=== PATIENT | female | born 1935 | race Caucasian/White ===

== ENCOUNTER → 2016-04-28 | Outpatient (CLI) | payer OTHER, BC ==
[~2016-04-28] MED LIST: ASPCH81X PO; CALCTAB5 PO; CHOL100010 PO; COLE625T PO; DILT-113 PO; DIPH25CA65 PO; GABA1CAP PO; MULT-768 PO; NEPA0.6D OPR; PRED1SUS3 OPR; SIMV10TA2 PO
[2016-04-28 13:50] LABS: BLOOD UREA NITROGEN 16 mg/dl (7-18); BUN/CREATININE RATIO 18.8 (10-20); CALCIUM 9.4 mg/dl (8.5-10.1); CARBON DIOXIDE 23 mmol/L (21-32); CHLORIDE 107 mmol/L (98-107); CHOLESTEROL 195 mg/dl (0-200); CREATININE 0.84 mg/dl (0.60-1.20); GLUCOSE 96 mg/dl (70-99); SODIUM 141 mmol/L (136-145); TRIGLYCERIDES 189 mg/dl (0-150); VERY LOW DENSITY LIPOPROT CALC 38 mg/dl
[2016-04-28 13:53] LABS: CHOLESTEROL/HDL RATIO 3.4; HDL CHOLESTEROL 58 mg/dl
[2016-04-28 14:01] LABS: ESTIMATED AVERAGE GLUCOSE 114 mg/dl; HA1C FLAG Normal (Normal)
== END | disposition home or self-care (01) ==
LOC: C.LABSPEC 12:32
PROVIDERS: ATTEND Internal Medicine
DX: R73.9 Hyperglycemia, unspecified (principal); E78.5 Hyperlipidemia, unspecified

== ENCOUNTER → 2016-06-08 | Outpatient (CLI) | payer OTHER, BC ==
[2016-06-08 14:54] LABS: BASO % 0.5 %; BASO ABS # 0.04 K/uL (0-0.2); COMPLETE YES; EOS % 1.7 %; HEMATOCRIT 36.5 % (37-47); IG% 0.2 %; LYMPH % 29.4 %; LYMPH ABS # 2.37 K/uL (1.2-3.4); MEAN CELL VOLUME 88.2 fL (80-100); MEAN CORPUSCULAR HEMOGLOBIN 29.7 pg (25-34); MEAN CORPUSCULAR HGB CONC 33.7 g/dl (32-36); MEAN PLATELET VOLUME 10.2 fL (7.4-10.4); MONO % 9.9 %; NEUT % 58.3 %; PLATELET COUNT 298 K/uL (130-400); RED BLOOD COUNT 4.14 M/uL (4.2-5.4); WHITE BLOOD COUNT 8.06 K/uL (4.8-10.8)
[2016-06-08 15:04] LABS: RHEUMATOID FACTOR < 10.0 U/mL (0-15)
[2016-06-08 21:07] LABS: LYME DISEASE AB IGG NEG (NEG); LYME DISEASE AB IGM NEG (NEG)
--- NOTE | 2016-06-10 07:20 | CODING QUERY NO DIAGNOSIS ---
: 1935 TREATMENT RENDERED WITHOUT A DIAGNOSIS To promote full compliance with coding requirements relating to patient care, physician participation is requested in all cases of product owner uncertainty. Please assist us with providing a diagnosis/symptom for the test(s) below: A diagnosis/symptom was not documented on your Order. A valid diagnosis/symptom is required to bill all insurances. Please remember that we are unable to code a diagnosis of rule out, probable, possible, questionable, or suspected. Tests that require a diagnosis: DOS: 06/08/16 * Creatine Phosphokinase DIAGNOSIS: * Rheumatoid Factor DIAGNOSIS: * CBC w/Auto Differential DIAGNOSIS: * Erythrocyte Sedimentation Rate DIAGNOSIS: * MIKKI Screen DIAGNOSIS: * Lyme IGG &IGM +WB Confirm DIAGNOSIS: Provider Signature: Date: Thank you Ayanna Hernandez Health Information Management Once completed, please kindly fax back to [phone] For questions please call [phone]
== END | disposition home or self-care (01) ==
LOC: C.LABSPEC 14:35
PROVIDERS: ATTEND Internal Medicine
DX: M79.1 Myalgia (principal); M25.50 Pain in unspecified joint

== ENCOUNTER → 2016-06-18 | Outpatient (CLI) | payer OTHER, BC ==
[2016-06-23 14:45] LABS: ANTI-SS-A <1.0 NEG AI (<1.0 NEG); ANTI-SS-B <1.0 NEG AI (<1.0 NEG); CYCLIC CITRULLINATED PEPT IGG <16 UNITS (<20)
== END | disposition home or self-care (01) ==
LOC: C.LABSPEC 12:40
PROVIDERS: ATTEND Internal Medicine
DX: M25.50 Pain in unspecified joint (principal); R76.0 Raised antibody titer

== ENCOUNTER → 2016-07-06 | Outpatient (CLI) | payer OTHER, BC ==
--- NOTE | 2016-07-06 15:49 | MAMMOGRAPHY REPORT ---
BILATERAL DIGITAL SCREENING MAMMOGRAM WITH CAD: 07/06/2016 CLINICAL HISTORY: Routine screening. Patient has no complaints. TECHNIQUE: Bilateral CC and MLO views were obtained. Current study was also evaluated with a Comput er Aided Detection (CAD) system. COMPARISON: Comparison is made to exams dated: 07/04/2015 mammogram, 07/02/2014 mammogram, 04/21/2013 m ammogram, 11/04/2012 mammogram, 10/26/2012 mammogram, and 10/26/2011 mammogram - [facility]. BREAST COMPOSITION: There are scattered areas of fibroglandular density in both breasts. FINDINGS: There are scattered benign rim calcifications in the breasts. No suspicious mass, archite ctural distortion or cluster of microcalcifications is seen. IMPRESSION: ACR BI-RADS CATEGORY 1: NEGATIVE There is no mammographic evidence of malignancy. A 1 year screening mammogram is recommended. The p atient will receive written notification of the results. Approximately 10% of breast cancers are not detected with mammography. A negative mammographic repor t should not delay biopsy if a clinically suggestive mass is present. Viridiana Ivy M.D. ay/:07/06/2016 15:17:13 Hazmat Tanker Driver: Valerie Garner, [facility] letter sent: Normal 1/2 BI-RADS Code: ACR BI-RADS Category 1: Negative
== END | disposition home or self-care (01) ==
LOC: C.MAMM 13:55
PROVIDERS: ATTEND Internal Medicine
DX: Z12.31 Encounter for screening mammogram for malignant neoplasm of breast (principal)

== ENCOUNTER → 2016-11-17 | Outpatient (CLI) | payer OTHER, BC ==
[2016-11-17 13:46] LABS: ESTIMATED AVERAGE GLUCOSE 117 mg/dl; HA1C FLAG Normal (Normal)
[2016-11-17 14:14] LABS: BLOOD UREA NITROGEN 14 mg/dl (7-18); BUN/CREATININE RATIO 15.2 (10-20); CALCIUM 9.7 mg/dl (8.5-10.1); CARBON DIOXIDE 28 mmol/L (21-32); CHLORIDE 106 mmol/L (98-107); CREATININE 0.92 mg/dl (0.60-1.20); GLUCOSE 95 mg/dl (70-99); POTASSIUM 3.8 mmol/L (3.5-5.1); SODIUM 139 mmol/L (136-145)
[2016-11-17 14:18] LABS: CHOLESTEROL 222 mg/dl (0-200); CHOLESTEROL/HDL RATIO 3.1; HDL CHOLESTEROL 72 mg/dl; TRIGLYCERIDES 214 mg/dl (0-150); VERY LOW DENSITY LIPOPROT CALC 43 mg/dl
== END | disposition home or self-care (01) ==
LOC: C.LABSPEC 12:57
PROVIDERS: ATTEND Internal Medicine
DX: Z00.00 Encounter for general adult medical examination without abnormal findings (principal); R73.9 Hyperglycemia, unspecified; E78.5 Hyperlipidemia, unspecified

== ENCOUNTER → 2017-05-24 | Outpatient (CLI) | payer OTHER, BC ==
[~2017-05-24] MED LIST changes: +GABA100C13 PO; -GABA1CAP PO
[2017-05-24 13:35] LABS: HEMOGLOBIN A1C 5.6 % (4.5-5.6)
[2017-05-24 13:43] LABS: BLOOD UREA NITROGEN 15 mg/dl (7-18); CALCIUM 9.7 mg/dl (8.5-10.1); CARBON DIOXIDE 26 mmol/L (21-32); CHOLESTEROL 161 mg/dl (0-200); CREATININE 0.84 mg/dl (0.60-1.20); GLUCOSE 92 mg/dl (70-99); POTASSIUM 3.9 mmol/L (3.5-5.1); SODIUM 139 mmol/L (136-145)
[2017-05-24 13:46] LABS: LDL CHOLESTEROL (DIRECT) 80 mg/dl
== END | disposition home or self-care (01) ==
LOC: C.LABSPEC 12:35
PROVIDERS: ATTEND Internal Medicine
DX: Z00.00 Encounter for general adult medical examination without abnormal findings (principal); R73.9 Hyperglycemia, unspecified; I10 Essential (primary) hypertension; E78.5 Hyperlipidemia, unspecified

== ENCOUNTER → 2017-06-15 | Outpatient (CLI) | payer OTHER, BC | END | disposition home or self-care (01) | LOC: C.LABSPEC 14:57 | PROVIDERS: ATTEND Internal Medicine | DX: R60.0 Localized edema (principal) ==

== ENCOUNTER 2023-12-05 07:12 | Observation (INO) ==
--- OUTSIDE RECORDS SUMMARY | 2023-12-05 07:17 | External Medical Summary | Summary of Care ---
Author Name Unknown Organization [facility] Address [address] [facility] [place] [address] Phone [phone] Care Team Providers Care Lithograph Designer Name Role Phone SondraSourav nova Primary Care Provider Reason for Visit * Reason Comments Rheum Follow Up Recheck Encounter Details Date Type Department Care Team (Late st Contact Info) Description 12/02/2023 9:20 AM EDT Office Visit Rheumatology [facility] [address] [place] [address] Harman Tai MD [address] [place] [address] Ankylosing spondylitis of multiple sites in spine (HCC)*; HLA B27 (HLA B27 positive); Encounter for long-term (current) use of medications Allergies Active Allergy Reactions Criticality Noted Date Comments Metoprolol 11/03/2016 neuropathy Other Reaction(s): NEUROPATHY Metronidazole 11/03/2016 neuropathy Other Reaction(s): NEUROPATHY OF FEET documented as of this encounter (statuses as of 12/02/2023) Medications Medication Sig Dispensed Refills Start Date End Date Status diphenhydrAMINE HCl 25 MG Oral Capsule Take 2 Capsules by mouth in the morning. Active Aspirin 81 MG Tablet Take 1 Tablet by mouth in the morning. Active atorvaSTATin (LIPITOR) 10 MG Tablet 1 daily 03/28/2018 Active Cholecalciferol (VITAMIN D) 50 MCG (2000 UT) Capsule Take 1,000 Units by mouth daily. Active Loratadine 10 MG Oral Capsule Take 1 Capsule by mouth in the morning. Active Ascorbic Acid (VITAMIN C) 100 MG Tablet Take 1 Tablet by mouth in the morning. Active Cholestyramine 4 GM Oral Packet (Questran) 06/25/2020 Active Dilt-XR 180 MG Oral Capsule Extended Release 24 Hour 11/28/2020 Active predniSONE 5 MG Oral Tablet (Deltasone) Take 1 Tablet by mouth in the morning. 30 Tablet 6 04/13/2022 Active Additional Information Patient not taking.Reported on 12/02/2023 Acetaminophen 325 MG Oral Tablet (Tylenol) 2 Tablets. 11/24/2022 Active Lisinopril 5 MG Oral Tablet (Prinivil) 0.5 Tablets. 1/2 tab daily 08/13/2023 Discontinued Hospital, Clinic, or Other Facility Administered Medication Ordered Dose Route Frequency Start Date End Date Status Certolizumab Pegol (Cimzia) inj 200 mgIndications:Ankylosing spondylitis of multiple sites in spine (HCC) 200 mg SC [id number] 09/23/2023 09/21/2024 Acti ve Certolizumab Pegol (Cimzia) inj 200 mgIndications:Ankylosing spondylitis of multiple sites in spine (HCC) 200 mg SC [id number] 09/23/2023 09/21/2024 Acti ve documented as of this encounter (statuses as of 12/02/2023) Active Problems Problem Noted Date Diagnosed Date Ankylosing spondylitis of multiple sites in spin e 02/27/2019 HLA B27 (HLA B27 positive) 05/11/2017 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 Encounter for long-term (current) use of medicat ions 05/11/2017 Atrial flutter Hyperlipidemia IBS (irritable bowel syndrome) Peripheral neuropathy Sleep apnea documented as of this encounter (statuses as of 12/02/2023) Resolved Problems Problem Noted Date Diagnosed Date Resolved Date TB lung, 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 05/31/2019 documented as of this encounter (statuses as of 12/02/2023) Immunizations Name Administration Dates Next Due COVID-19 mRNA, LNP-s, No Pre serve, 2-Dose Series (Moderna) 02/20/2021,05/17/2020,04/19/2020 Season Influenza, Quad, PF, Adjuvanted, 65+ Yrs, IM (FLUAD) 01/08/2021,01/03/2020 Seasonal Influenza, QUAD, wi th Preserv, 6 mons & Above, 0.5 mL, IM 11/13/2018,12/14/2017 Seasonal Influenza, Quadriva lent Hd (Fluzone Hd) 12/09/2022,01/17/2022 Seasonal Influenza, Trivalen t, (IIV3), with Preserv, (Fluzone) 01/17/2022 Zoster Vaccine Recombinant (Shingrix) 05/03/2019 ,03/01/2019 documented as of this encounter Social History Tobacco Use Types Packs/Day Years Used Date Smoking Tobacco: Never Smokeless Tobacco: Never Alcohol Use Standard Drinks/Week Comments Yes 0 (1 standard drink = 0.6 oz pur e alcohol) Sex and Gender Information Value Date Recorded Sex Assigned at Female 08/04/2021 9:33 PM EDT Gender Identity Female 08/04/2021 9:33 PM EDT Sexual Orientation Not on file Job Start Date Occupation Industry Not on file Not on file Not on file documented as of this encounter Last Filed Vital Signs Vital Sign Reading Time Taken Comments Blood Pressure 120/62 12/02/2023 9:13 AM EDT Pulse - - Temperature 36.5 C (97.7 F) 12/02/2023 9:13 AM ED T Respiratory Rate - - Oxygen Saturation - - Inhaled Oxygen Concentration - - Weight - - Height - - Body Mass Index - - documented in this encounter Progress Notes * Harman Tai MD - 12/02/2023 9:29 AM EDT Subjective: Patient seen today for further follow up evaluation of seronegative polyarthritis, ankylosing spondylitis, HLA B27+. Since the last visit she reports that she has had covid twice since July and reallydid not feel well since July until the last few weeks. She did not really miss any cimzia dosing with the illnesses. With covid she really was just very fatigued and had some loss of taste. She did get cimzia today. She also had complications after a dental procedure as well and was on a soft diet until recently. She lost 22 lbs because of that. She also did see Hematology because of elevated white count but he did not find anything concerning. Her counts did normalize as well. I am able to see her blood work through Care everywhere. Musculoskeletal ROS: . Normal Other ROS: . Constitutional: weight loss . Head normal . Eyes: normal . Ears, nose, throat, mouth: normal . Cardiovascular: normal . Respiratory: normal . Gastrointestinal: normal . Genitourinary: normal . Skin: normal All other ROS reviewed and negative Social History: Social History Tobacco Use Smoking status: Never Smokeless tobacco: Never Substance Use Topics Alcohol use: Yes Vaping/E-Cigarette Use Vaping/E-Cigarette Substances Vaping/E-Cigarette Devices Current Outpatient Medications Medication Sig Dispense Refill diphenhydrAMINE HCl 25 MG Oral Capsule Take 2 Capsules by mouth in the morning. Aspirin 81 MG Tablet Take 1 Tablet by mouth in the morning. atorvaSTATin (LIPITOR) 10 MG Tablet 1 daily Cholecalciferol (VITAMIN D) 50 MCG (2000 UT) Capsule Take 1,000 Units by mouth daily. Loratadine 10 MG Oral Capsule Take 1 Capsule by mouth in the morning. Ascorbic Acid (VITAMIN C) 100 MG Tablet Take 1 Tablet by mouth in the morning. Cholestyramine 4 GM Oral Packet (Questran) Dilt-XR 180 MG Oral Capsule Extended Release 24 Hour Acetaminophen 325 MG Oral Tablet (Tylenol) 2 Tablets. predniSONE 5 MG Oral Tablet (Deltasone) Take 1 Tablet by mouth in the morning. (Patient not taking:Reported on 12/02/2023) 30 Tablet 6 Current Facility-Administered Medications Medication Dose Route Frequency Provider Last Rate Last Admin Certolizumab Pegol (Cimzia) inj 200 mg 200 mg Subcutaneous Q2 Weeks 200 mg at 11/04/23 0856 Certolizumab Pegol (Cimzia) inj 200 mg 200 mg Subcutaneous Q2 Weeks 200 mg at 12/02/23 0927 Physical Exam: BP 120/62 | Temp 36.5 C (97.7 F) (Infrared ) General: alert, no distress, and well nourished Neck: supple, no adenopathy, thyroid normal size, non-tender, without nodularity Lymph: no palpable lymphadenopathy Heart: regular rate & rhythm and no gallops Lungs: clear to auscultation , no rales, wheezes or rhonchi Abdomen: abdomen soft, non-tender, and normal bowel sounds Extremities: no clubbing, no cyanosis Musculoskeletal Exam: No synovitis noted to the hands or dactylitis No knee effusions Assessment: (M45.0) Ankylosing spondylitis of multiple sites in spine (HCC) (primary encounter diagnosis) (Z15.89) HLA B27 (HLA B27 positive) (Z79.899) Encounter for long-term (current) use of medications Currently she is doing well on Cimzia with no disease activity. Remains off steroids. Plan: 1. Continue with Cimzia every other week 2. Recommend she gets a flu vaccine in the upcoming weeks 3. Contact with any issues 4. Return to clinic with nurses for Cimzia injections every other week 5. Return to clinic with me in 1 year Harman Tai MD Department of Rheumatology documented in this encounter Nursing Notes * Stacie Ibarra LPN - 12/02/2023 9:13 AM EDT Chief Complaint Patient presents with Medication Administration Cimzia Pt here for Cimzia injection. Pt identified by name and date of , pt denies fever, signs of infection and states is not being treated for any infections at present time. Injections administered, 1 subcutaneous injection administered in L thigh, pt tolerated well. Observed in clinic for 20 minutes, no adverse reactions noted. Pt advised to notify us if develops any fever, flu like symptoms, rash or skin infections, or for problems/concerns. Pt voiced understanding. documented in this encounter Plan of Treatment Upcoming Encounters Date Type Department Care Team (Late st Contact Info) Description 12/16/2023 8:30 AM EDT Immunization/Inj ection Rheumatology [place] [address] [facility] [place], [place] [phone] Pf, Nurse Rheum [facility] [place] [place] [id number] 12/30/2023 9:30 AM EDT Immunization/Inj ection Rheumatology [place] [address] [facility] [place], [place] [phone] Pf, Nurse Rheum [facility] [place], [place] [phone] 01/13/2024 8:30 AM EDT Immunization/Inj ection Rheumatology [place] [address] [facility] [place] [phone] Pf, Nurse Rheum [facility] [address] Izagu[address]re [place], [place] [phone] 01/27/2024 9:30 AM EST Immunization/Inj ection Rheumatology [place] [address] [address] [place], [place] [phone] Pf, Nurse Rheum [facility] [place], [place] [phone] Health Maintenance Due Date Last Done Comments Pneumococcal Vaccine: 65+ Years (1 of 2 - PCV) 11/09/1941 Depression Screening 1947 DTap/Tdap Vaccines (1 - Tdap) 11/09/1954 COVID-19 Vaccine (4 - season) 2023 02/20/2021, 05/17/2020, 04/19/2020 Influenza Vaccine (FLU shot) (#1) 2023 12/09/2022, 01/17/2022, 01/17/2022, Additional history exists DXA Scan 08/07/2027 08/06/2020, 12/09/2016 Zoster Vaccines Completed 05/03/2019, 03/01/2019 HPV (Gardasil) Vaccine Aged Out No lo nger eligible based on patient's age to complete this topic Hepatitis B Vaccine Aged Out No longe r eligible based on patient's age to complete this topic MENINGOCOCCAL (MENACTRA/MENVEO) Aged Out No longer eligible based on patient's age to complete this topic documented as of this encounter Medical Devices Not on filedocumented as of this encounter Visit Diagnoses Diagnosis Ankylosing spondylitis of multiple sites in spine (HCC)- Primary Ankylosing spondylitis HLA B27 (HLA B27 positive) Genetic susceptibility to other disease Encounter for long-term (current) use of medications Encounter for long-term (current) use of other medications documented in this encounter Administered Medications Active Administered Medications - up to 3 most recent administrations Medication Order MAR Action Action Date Dose Rate Site Certolizumab Pegol (Cimzia) inj 200 mg 200 mg, Subcutaneous, [id number], First dose on Liyah 09/23/23 at 1130, Last dose on Liyah 09/07/24 at 1130, For 26 doses, Give Today; Give in Two Weeks; Give in Four Weeks; Then Give Every Four Weeks Given 12/02/2023 9:27 AM EDT 200 mg Thigh Right Lateral Given 11/18/2023 11:02 AM EDT 200 mg T high Left Lateral Given 10/21/2023 9:36 AM EDT 200 mg Th igh Right Lateral documented in this encounter Care Teams Lithograph Designer Relationship Specialty Start Date End Date Sourav Amaro DO [address] [place] [address] PCP - General Family Medicine 07/24/21 documented as of this encounter"
[2023-12-05] MEDS: NITROGLYCERIN SL 0.4 MG/TAB TAB ONE (07:26)
[2023-12-05] MEDS: NITROGLYCERIN SL 0.4 MG/TAB TAB SL PRN (07:26)
[2023-12-05] MEDS: SODIUM CHLORIDE 0.9% 1,000 ML IV STA (07:27)
--- NOTE | 2023-12-05 07:46 | Emergency Department Note ---
History of Present Illness General Chief Complaint: Chest Pain Time Seen by Provider: 12/05/23 07:20 History of Present Illness Provider Complaint: chest pain Time: 23:30 Duration: intermittent and improved Onset: during rest Pain Location: substernal Pain Radiation: neck Severity: moderate Maximum Pain Intensity: 4 Current Pain Intensity: 4 Relieved By: + nitroglycerin Exacerbated By: + nothing Context: no recent illness, no recent surgery, no recent immobilization, no recent travel, no trauma/injury or no new medications Associated symptoms: no nausea, no vomiting, no dyspnea, no syncope, no palpitations, no fever or no cough Treatments prior to arrival: aspirin and nitroglycerin Home Medications Medication Instructions Recorded Confirmed Type cholecalciferol (vitamin D3) 25 1,000 units PO DAILY 12/20/18 12/05/23 History mcg (1,000 unit) capsule diltiazem HCl 180 mg 180 mg PO DAILY 12/20/18 12/05/23 History capsule,extended release 24 hr loratadine 10 mg tablet (Claritin) 10 mg PO DAILY 02/15/19 12/05/23 History [id number]-axl-[id number] 5 mg-zeaxanth 1 cap PO DAILY 02/15/19 12/05/23 History 1 mg-bilberry 7.5 mg-herbal capsule ([facility] Formula) atorvastatin 10 mg tablet 10 mg PO DAILY 02/15/20 12/05/23 History cholestyramine (with sugar) 4 gram 1 ea PO DAILY 02/18/21 12/05/23 History oral powder acetaminophen 325 mg tablet 650 mg PO QID PRN Pain/Fever 11/24/22 12/05/23 History (Tylenol) cyanocobalamin (vitamin B-12) 500 500 mcg PO DAILY 11/29/23 12/05/23 History mcg tablet (Vitamin B-12) ascorbic acid (vitamin C) 500 mg 500 mg PO DAILY 12/05/23 12/05/23 History tablet (Vitamin C) aspirin 81 mg tablet,delayed 81 mg PO DAILY 12/05/23 12/05/23 History release Allergies Allergy/AdvReac Type Severity Reaction Status Date / Time metoprolol Allergy Unknown NEUROPATHY Verified 12/05/23 08:57 metronidazole Allergy Unknown NEUROPATHY Verified 12/05/23 08:57 OF FEET Past Med/Surg History Problem List (Updated 12/05/23 @ 09:10 by Fritz Bryant MD) Chest pain (Acute) Nocturnal hypoxemia Medical History COVID-19 Obstructive sleep apnea Hyperlipidemia Hypertension Rheumatoid arthritis Atrial flutter Positive PPD Surgical History H/O rectocele repair H/O: hysterectomy S/P tonsillectomy S/P laparoscopic cholecystectomy Family History Other Coronary heart disease Social History Smoking Status: Never smoker Hx Alcohol Use: Yes Preferred Language: Cameroonian marital status: Current Living Situation: Spouse current occupational status: retired Feels Safe at Home: Yes Physical Exam Vital Signs Vital Signs - 24 hr 12/05/23 07:16 12/05/23 07:19 12/05/23 07:25 Temperature 36.5 C Temperature Source Oral Pulse Rate 85 82 Pulse Rate from SpO2 Sensor Respiratory Rate 16 Respiratory Effort / Characteristics Non-Labored Spontaneous Respiratory Depth Normal Blood Pressure 142/107 H Blood Pressure [Left Arm] Blood Pressure Mean 118 Blood Pressure Mean [Left Arm] Pulse Oximetry 95 97 Oxygen Delivery Method Room Air Room Air Sepsis Recent Fever Within 48 Hours No Sepsis New/Unexplained Change in Mental Status N/A Sepsis Action Taken by Nursing No Action Required 12/05/23 07:30 12/05/23 07:30 12/05/23 07:30 Temperature Temperature Source Pulse Rate Pulse Rate from SpO2 Sensor Respiratory Rate Respiratory Effort / Characteristics Respiratory Depth Blood Pressure 113/76 113/76 Blood Pressure [Left Arm] 148/81 H Blood Pressure Mean 85 85 Blood Pressure Mean [Left Arm] 103 Pulse Oximetry Oxygen Delivery Method Sepsis Recent Fever Within 48 Hours Sepsis New/Unexplained Change in Mental Status Sepsis Action Taken by Nursing 12/05/23 07:33 12/05/23 07:39 12/05/23 07:45 Temperature Temperature Source Pulse Rate 85 85 Pulse Rate from SpO2 Sensor 86 85 Respiratory Rate 16 21 Respiratory Effort / Characteristics Respiratory Depth Blood Pressure 117/82 Blood Pressure [Left Arm] Blood Pressure Mean 87 Blood Pressure Mean [Left Arm] Pulse Oximetry 93 94 Oxygen Delivery Method Sepsis Recent Fever Within 48 Hours Sepsis New/Unexplained Change in Mental Status Sepsis Action Taken by Nursing 12/05/23 07:54 12/05/23 08:00 12/05/23 08:00 Temperature Temperature Source Pulse Rate 77 Pulse Rate from SpO2 Sensor 74 Respiratory Rate 18 Respiratory Effort / Characteristics Respiratory Depth Blood Pressure 141/92 H 141/92 H Blood Pressure [Left Arm] Blood Pressure Mean 120 120 Blood Pressure Mean [Left Arm] Pulse Oximetry 95 Oxygen Delivery Method Sepsis Recent Fever Within 48 Hours Sepsis New/Unexplained Change in Mental Status Sepsis Action Taken by Nursing 12/05/23 08:15 12/05/23 08:15 12/05/23 08:27 Temperature Temperature Source Pulse Rate 70 73 Pulse Rate from SpO2 Sensor 71 70 Respiratory Rate 15 16 Respiratory Effort / Characteristics Respiratory Depth Blood Pressure 133/85 Blood Pressure [Left Arm] Blood Pressure Mean 101 Blood Pressure Mean [Left Arm] Pulse Oximetry 95 95 Oxygen Delivery Method Sepsis Recent Fever Within 48 Hours Sepsis New/Unexplained Change in Mental Status Sepsis Action Taken by Nursing 12/05/23 08:30 12/05/23 08:36 Temperature Temperature Source Pulse Rate 73 Pulse Rate from SpO2 Sensor 73 Respiratory Rate 16 Respiratory Effort / Characteristics Respiratory Depth Blood Pressure 134/85 Blood Pressure [Left Arm] Blood Pressure Mean 99 Blood Pressure Mean [Left Arm] Pulse Oximetry 96 Oxygen Delivery Method Sepsis Recent Fever Within 48 Hours Sepsis New/Unexplained Change in Mental Status Sepsis Action Taken by Nursing Physical Exam GENERAL: oriented to person, place, and time. appears well-developed and well- nourished. HENT: Exam performed. - Head: Normocephalic and atraumatic. EYES: Conjunctivae and EOM are normal. Right eye exhibits no discharge. Left eye exhibits no discharge. No scleral icterus. NECK: Normal range of motion. Neck supple. No JVD present. CV: Normal rate, regular rhythm, normal heart sounds and intact distal pulses. There is no peripheral edema. Palpable radial pulses bue. PULM/CHEST: Effort normal and breath sounds normal. No respiratory distress. No stridor. no wheezes. no rales. ABD: The abdomen is soft. There is no tenderness. NEURO: Motor and sensation grossly intact. SKIN: Skin is warm and dry. He is not diaphoretic. PSYCH: normal mood and affect. Behavior is normal. Judgment and thought content normal. Course Course 07: The patient was evaluated in room A10. A complete history and physical exam was performed Cardiac monitoring: An order was placed for continuous cardiac monitoring. The monitor shows a rate of 80 with sinus rhythm interpreted by me 0835: Vital signs stable. Labs and imaging are unremarkable. Patient reports her chest pain is resolved status post repeat sublingual nitroglycerin. Patient be admitted to the [facility]ist team for chest pain rule out ACS. Administered Medications Nitroglycerin (Nitroglycerin Sl 0.4 Mg/Tab Tab) 0.4 mg SL Q5M PRN PRN Reason: Chest Pain Stop: 01/04/24 07:24 Last Admin: 12/05/23 07:26 Dose: 0.4 mg Documented By: HS Discontinued Medications Sodium Chloride (Nss) 1,000 mls @ 999 mls/hr IV .Q1H1M STA Stop: 12/05/23 08:25 Last Infusion: 12/05/23 08:40 Dose: Infused Documented By: Admin: 12/05/23 07:27 Dose: 999 mls/hr Documented By: HS Nitroglycerin (Nitroglycerin Sl 0.4 Mg/Tab Tab) Confirm Administered Dose 0.4 mg .ROUTE .STK-MED ONE Stop: 12/05/23 07:26 Last Admin: 12/05/23 07:26 Dose: Not Given Documented By: HS Medical Decision Making Laboratory Data Attestation: I reviewed the patient's lab results. 12/05/23 07:20 12/05/23 07:20 Labs: Lab Results 12/05/23 Range/Units 07:20 WBC 9.56 (4.8-10.8) K/ul RBC 4.06 L (4.20-5.40) M/uL Hgb 11.5 L (12.0-16.0) g/dl Hct 34.8 L (37.0-47.0) % MCV 85.7 (80.0-100.0) fL MCH 28.3 (25.0-34.0) pg MCHC 33.0 (32.0-36.0) g/dL RDW Std Deviation 53.1 H (36.4-46.3) fL RDW Coeff of Jah 16.9 H (11.5-14.5) % Plt Count 240 (130-400) K/uL MPV 10.3 (9.4-12.4) fL Immature Gran % (Auto) 0.3 % Neut % (Auto) 73.5 % Lymph % (Auto) 16.9 % [place] % (Auto) 8.8 % Eos % (Auto) 0.1 % Baso % (Auto) 0.4 % Neut # (Auto) 7.02 H (1.40-6.50) K/uL Lymph # (Auto) 1.62 (1.20-3.40) K/uL [place] # (Auto) 0.84 H (0.11-0.59) K/uL Eos # (Auto) 0.01 (0.00-0.50) K/uL Baso # (Auto) 0.04 (0.00-0.20) K/uL Immature Gran # (Auto) 0.03 (0.01-0.20) K/uL PT 10.8 (9.0-12.0) Seconds INR 1.0 (0.9-1.1) APTT 27 (21-31) Seconds PTT Ratio 1.0 Sodium 136 (136-145) mmol/L Potassium 4.4 (3.5-5.1) mmol/L Chloride 102 (98-107) mmol/L Carbon Dioxide 26 (21-32) mmol/L Anion Gap 8 (3-11) BUN 14 (6-23) mg/dl Creatinine 0.72 (0.6-1.2) mg/dl Est Cr Clr Drug Dosing 49.9 ml/min Est GFR ( Amer) 86.7 ml/min Est GFR (Non-Af Amer) 74.8 ml/min BUN/Creatinine Ratio 19.4 (10-20) Glucose 153 H (70-99(Fasting)) mg/dl Calcium 9.9 (8.6-10.3) mg/dl Troponin I High Sens < 2.3 (0-14) pg/ml Lipase 25 (11-82) U/L Imaging Data Chest x-ray: Attestation: I personally reviewed and interpreted this imaging study as follows: My impression: No significant change from the chest x-ray in September 2023 Radiologist's impression: Chest X-Ray 12/05/23 07:25 XR chest 1V portable CLINICAL HISTORY: Chest pain, nonspecific COMPARISON STUDY: Chest radiograph October 11, 2023. FINDINGS: Lung volumes are normal. Lungs are clear. There is no pneumothorax or pleural effusion. Mild cardiomegaly is unchanged. Mediastinal contours are normal. There is no evidence for pulmonary edema. IMPRESSION: No acute cardiopulmonary findings. ACT 112: Negative or not required by law. Electronically signed by: Casper Davis M.D. 12/05/2023 7:57 AM ECG Data Attestation: I personally reviewed and interpreted this ECG as follows: Indication: chest pain Rate (beats per minute): 82 Rhythm: normal sinus Findings: no ST depression, no ST elevation or no prolonged QT Additional Comments: QRS 72 MDM Narrative 0720: The patient was evaluated in room A10. A complete history and physical exam was performed Cardiac monitoring: An order was placed for continuous cardiac monitoring. The monitor shows a rate of 80 with sinus rhythm interpreted by me 0835: Vital signs stable. Labs and imaging are unremarkable. Patient reports her chest pain is resolved status post repeat sublingual nitroglycerin. [facility] be [facility] hospitalist team for chest pain rule out ACS. Impression & Plan Chest pain Discharge Plan Visit Data Chief Complaint: Chest Pain ED Provider: Fritz Bryant Discharge Problem: Chest pain Patient Disposition: Being Evaluated by Hospitalist Forms Stand Alone Forms: My [facility] Prescriptions Prescriptions: No Action acetaminophen [Tylenol] 325 mg tablet 650 mg PO QID PRN (Reason: Pain/Fever) cyanocobalamin (vitamin B-12) [Vitamin B-12] 500 mcg tablet 500 mcg PO DAILY atorvastatin 10 mg tablet 10 mg PO DAILY cholestyramine (with sugar) 4 gram powder 1 ea PO DAILY diltiazem HCl 180 mg capsule,extended release 24hr 180 mg PO DAILY cholecalciferol (vitamin D3) 1,000 unit capsule 1,000 units PO DAILY loratadine [Claritin] 10 mg tablet 10 mg PO DAILY [facility] Formula 5-1-7.5 mg capsule 1 cap PO DAILY aspirin 81 mg Tablet,Delayed Release (Dr/Ec) 81 mg PO DAILY ascorbic acid (vitamin C) [Vitamin C] 500 mg Tablet 500 mg PO DAILY Referrals Referrals: Sourav Amaro DO [Primary Care Provider] - Discharge Problem: Chest pain Qualifiers: Chest pain type: unspecified Qualified Code(s): R07.9 - Chest pain, unspecified
--- NOTE | 2023-12-05 07:59 | XRay Report ---
XR chest 1V portable CLINICAL HISTORY: Chest pain, nonspecific COMPARISON STUDY: Chest radiograph October 11, 2023. FINDINGS: Lung volumes are normal. Lungs are clear. There is no pneumothorax or pleural effusion. Mil d cardiomegaly is unchanged. Mediastinal contours are normal. There is no evidence for pulmonary césar a. IMPRESSION: No acute cardiopulmonary findings. ACT 112: Negative or not required by law. Electronically signed by: Casper Davis M.D. 12/05/2023 7:57 AM
[2023-12-05 08:00] LABS: Basophils # (auto) 0.04 K/uL (0.00-0.20); Basophils % (auto) 0.4 %; Eosinophils # (auto) 0.01 K/uL (0.00-0.50); Eosinophils % (auto) 0.1 %; Hematocrit (blood only) 34.8 % (37.0-47.0); Hemoglobin 11.5 g/dl (12.0-16.0); Immature Granulocytes # (auto) 0.03 K/uL (0.01-0.20); Immature Granulocytes % (auto) 0.3 %; Lymphocytes # (auto) 1.62 K/uL (1.20-3.40); Lymphocytes % (auto) 16.9 %; Mean Corpuscular Hemoglobin 28.3 pg (25.0-34.0); Mean Corpuscular Volume 85.7 fL (80.0-100.0); Mean Platelet Volume 10.3 fL (9.4-12.4); Monocytes # (auto) 0.84 K/uL (0.11-0.59); Monocytes % (auto) 8.8 %; Neutrophils # (auto) 7.02 K/uL (1.40-6.50); Neutrophils % (auto) 73.5 %; Platelet Count 240 K/uL (130-400); RDW Coefficient of Variation 16.9 % (11.5-14.5); RDW Standard Deviation 53.1 fL (36.4-46.3); Red Blood Count 4.06 M/uL (4.20-5.40); White Blood Count 9.56 K/ul (4.8-10.8)
[2023-12-05 08:17] LABS: Anion Gap 8 (3-11); BUN Creatinine Ratio 19.4 (10-20); Blood Urea Nitrogen 14 mg/dl (6-23); Calcium 9.9 mg/dl (8.6-10.3); Carbon Dioxide 26 mmol/L (21-32); Chloride 102 mmol/L (98-107); Creatinine Clr Calc Pharmacy 49.9 ml/min; Est GFR (African American) 86.7 ml/min; Est GFR (Non-African American) 74.8 ml/min; Glucose 153 mg/dl (70-99(Fasting)); Lipase 25 U/L (11-82); Potassium 4.4 mmol/L (3.5-5.1); Sodium 136 mmol/L (136-145)
[2023-12-05 08:22] LABS: Partial Thromboplastin Time 27 Seconds (21-31); Prothrombin Time 10.8 Seconds (9.0-12.0)
[2023-12-05 08:23] LABS: Troponin I High Sensitivity < 2.3 pg/ml (0-14)
[2023-12-05] MEDS ORDERED: NITROGLYCERIN SL 0.4 MG/TAB TAB SL PRN (09:01)
[2023-12-05] MEDS ORDERED: POLYETHYLENE (MIRALAX) 17 GM PACK PO PRN (09:01)
[2023-12-05] MEDS ORDERED: ALUMINUM/MAGNESIUM SUSP 30 ML UDC PO PRN (09:01)
--- NOTE | 2023-12-05 09:38 | History & Physical Report ---
Date of Service December 05, 2023 Assessment & Plan (1) Chest pain: (2) Hypertension: (3) Hyperlipidemia: (4) Paroxysmal atrial fibrillation: (5) Rheumatoid arthritis: (6) Obstructive sleep apnea: Plan 88-year-old female with past medical history of essential hypertension, hyper lipidemia, VERONIQUE on CPAP, rheumatoid arthritis, paroxysmal atrial fibrillation not on anticoagulation under the care of Dr. Baxter presents to the ED via EMS after experiencing chest pain at 4:30 in the morning relieved by nitroglycerin. Patient states she initially started experiencing jaw pain and neck discomfort around 1 AM which improved after she massaged her neck. She then woke up with substernal chest pain no radiation 7 out of 10 with subjective feeling of shortness of breath and took a sublingual nitro that belonged to her with relief in her pain. She called EMS and was given 4 baby aspirin's chewable and she was brought to the ED. In the emergency room she had another sublingual nitro which helped relieve the pain. She had a EKG done which shows sinus rhythm with ventricular rate of 82 bpm, with no ischemic changes noted on EKG and initial troponin which was negative. 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 Baxter Admit to hospitalist service for observation Telemetry monitoring Serial troponin, for set of troponin is negative Chest x-ray did not show any acute abnormalities Check fasting lipid profile in a.m. EKG as needed for chest pain Continue aspirin plus statin Lexiscan stress test Check 2D echo Continue Cardizem 180 mg p.o. 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 Tai Tylenol as needed for pain management Patient is on Cimzia injections [id number] CODE STATUS: Patient states she has advanced directives stating she is DNR but she would like to be full code during this admission. Patient has appointed her daughter Anastacia Reyna as her surrogate decision-maker DVT prophylaxis: Lovenox 40 mg subcutaneous daily Discharge planning based on Lexiscan stress test results, if stress test is negative tomorrow patient can be discharged home Care plan discussed with patient, nursing staff and daughters updated bedside History of Present Illness Chief Complaint: Chest pain Primary Care Provider: Sourav Amaro DO 88-year-old female with past medical history of essential hypertension, hyperlipidemia, VERONIQUE on CPAP, rheumatoid arthritis, paroxysmal atrial fibrillation not on anticoagulation under the care of Dr. Baxter presents to the ED via EMS after experiencing chest pain at 4:30 in the morning relieved by nitroglycerin. Patient states she initially started experiencing jaw pain and neck discomfort around 1 AM which improved after she massaged her neck. She then woke up with substernal chest pain no radiation 7 out of 10 with subjective feeling of shortness of breath and took a sublingual nitro that belonged to her with relief in her pain. She called EMS and was given 4 baby aspirin's chewable and she was brought to the ED. In the emergency room she had another sublingual nitro which helped relieve the pain. She had a EKG done which shows sinus rhythm with ventricular rate of 82 bpm, with no ischemic changes noted on EKG and initial troponin which was negative. She had a chest x-ray which was unremarkable and hospitalist service was called for admission In the ED: Patient was given 1 L of normal saline and 0.4 mg sublingual nitroglycerin. Patient currently denies chest pain. She denies any headache, dizziness, lightheadedness, nausea, vomiting, diarrhea, abdominal pain, dysuria. She has ongoing frequency which is not new and denies any urgency. She denies any fever, chills, cough or recent flulike illness. Patient states she had COVID twice this year which led to really fatigue but her energy levels have improved and are back to her baseline. She is independent of ADLs, ambulates on her own, drives Patient denies alcohol use or tobacco use Family history: Mother of CVA at age 92, father of [place] at age 82 Patient's daughters are at her bedside Allergies Allergy/AdvReac Type Severity Reaction Status Date / Time metoprolol Allergy Unknown NEUROPATHY Verified 12/05/23 08:57 metronidazole Allergy Unknown NEUROPATHY Verified 12/05/23 08:57 OF FEET Home Medications Medication Instructions Recorded Confirmed Type cholecalciferol (vitamin D3) 25 1,000 units PO DAILY 12/20/18 12/05/23 History mcg (1,000 unit) capsule diltiazem HCl 180 mg 180 mg PO DAILY 12/20/18 12/05/23 History capsule,extended release 24 hr loratadine 10 mg tablet (Claritin) 10 mg PO DAILY 12/04/19 09/22/24 History bhljyqon-wmj-fcmfxg 5 mg-zeaxanth 1 cap PO DAILY 02/15/19 12/05/23 History 1 mg-bilberry 7.5 mg-herbal capsule ([facility] Formula) atorvastatin 10 mg tablet 10 mg PO DAILY 02/15/20 12/05/23 History cholestyramine (with sugar) 4 gram 1 ea PO DAILY 02/18/21 12/05/23 History oral powder acetaminophen 325 mg tablet 650 mg PO QID PRN Pain/Fever 11/24/22 12/05/23 History (Tylenol) cyanocobalamin (vitamin B-12) 500 500 mcg PO DAILY 11/29/23 12/05/23 History mcg tablet (Vitamin B-12) ascorbic acid (vitamin C) 500 mg 500 mg PO DAILY 12/05/23 12/05/23 History tablet (Vitamin C) aspirin 81 mg tablet,delayed 81 mg PO DAILY 12/05/23 12/05/23 History release Past Med/Surg History Problem List (Updated 12/05/23 @ 13:54 by Seymour Osorio MD) Paroxysmal atrial fibrillation Chest pain (Acute) Nocturnal hypoxemia Medical History COVID-19 Obstructive sleep apnea Hyperlipidemia Hypertension Rheumatoid arthritis Atrial flutter Positive PPD Surgical History H/O rectocele repair H/O: hysterectomy S/P tonsillectomy S/P laparoscopic cholecystectomy Family History Other Coronary heart disease Social History Smoking Status: Never smoker Hx Alcohol Use: Yes Preferred Language: Uruguayan marital status: Current Living Situation: Spouse current occupational status: retired Feels Safe at Home: Yes Review of Systems Review of Systems: All 12 systems were reviewed and are either negative or stated in HPI Physical Exam Physical Exam: General: No acute distress Psych: Awake and alert HEENT: Anicteric sclera, moist oral mucosa CVS: Regular rate and rhythm Lungs: Bilateral air entry, no wheezing noted Abdomen: Soft, nontender, no rebound, no guarding Ext: No lower extremity edema, no calf tenderness Neuro: No focal motor deficits noted Results & Data Results & Data Vital Signs (Past 12 Hours) Vital Signs Temp Pulse Resp BP BP Pulse Ox O2 Del Method 12/05/23 08:36 73 16 96 12/05/23 08:30 134/85 12/05/23 08:27 73 16 95 12/05/23 08:15 70 15 95 12/05/23 08:15 133/85 12/05/23 08:00 141/92 H 12/05/23 08:00 141/92 H 12/05/23 07:54 77 18 95 12/05/23 07:45 117/82 12/05/23 07:39 85 21 94 12/05/23 07:33 85 16 93 12/05/23 07:30 113/76 12/05/23 07:30 113/76 12/05/23 07:30 148/81 H 12/05/23 07:25 97 Room Air 12/05/23 07:19 82 12/05/23 07:16 36.5 C 85 16 142/107 H 95 Room Air Laboratory Results Laboratory Results - last 24 hr 12/05/23 07:20 WBC 9.56 RBC 4.06 L Hgb 11.5 L Hct 34.8 L MCV 85.7 MCH 28.3 MCHC 33.0 RDW Std Deviation 53.1 H RDW Coeff of Jah 16.9 H Plt Count 240 MPV 10.3 Immature Gran % (Auto) 0.3 Neut % (Auto) 73.5 Lymph % (Auto) 16.9 [place] % (Auto) 8.8 Eos % (Auto) 0.1 Baso % (Auto) 0.4 Neut # (Auto) 7.02 H Lymph # (Auto) 1.62 [place] # (Auto) 0.84 H Eos # (Auto) 0.01 Baso # (Auto) 0.04 Immature Gran # (Auto) 0.03 PT 10.8 INR 1.0 APTT 27 PTT Ratio 1.0 Sodium 136 Potassium 4.4 Chloride 102 Carbon Dioxide 26 Anion Gap 8 BUN 14 Creatinine 0.72 Est Cr Clr Drug Dosing 49.9 Est GFR ( Amer) 86.7 Est GFR (Non-Af Amer) 74.8 BUN/Creatinine Ratio 19.4 Glucose 153 H Calcium 9.9 Troponin I High Sens < 2.3 Lipase 25 Diagnostic Findings Chest X-Ray 12/05/23 07:25 XR chest 1V portable CLINICAL HISTORY: Chest pain, nonspecific COMPARISON STUDY: Chest radiograph October 11, 2023. FINDINGS: Lung volumes are normal. Lungs are clear. There is no pneumothorax or pleural effusion. Mild cardiomegaly is unchanged. Mediastinal contours are normal. There is no evidence for pulmonary edema. IMPRESSION: No acute cardiopulmonary findings. ACT 112: Negative or not required by law. Electronically signed by: Casper Davis M.D. 12/05/2023 7:57 AM PG Care Time/CCT Total # of Minutes Spent Total Time Spent with Patient: Total time spent is greater than 50% in coordination of care (as documented) at patient's floor/unit and/or counseling patient: Coding Level of Care Code 53856 INT INP/OBS CARE 2/55MIN Diagnoses Chest pain R07.9 Chest pain type: unspecified Hypertension I10 Hyperlipidemia E78.5 Paroxysmal atrial fibrillation I48.0 Rheumatoid arthritis M06.9 Obstructive sleep apnea G47.33 (1) Chest pain Chest pain type: unspecified Qualified Code(s): R07.9 - Chest pain, unspecified
[2023-12-05] MEDS ORDERED: CALCIUM CARBONATE 500 MG CHEWABLE TAB PO PRN (09:46)
[2023-12-05] MEDS: LORATADINE 10 MG TAB PO SCH (11:31)
[2023-12-05] MEDS: ATORVASTATIN 10 MG TAB PO SCH (11:31)
[2023-12-05] MEDS: dilTIAZem HCL 180 MG CAPCR PO SCH (11:31)
[2023-12-05] MEDS: ACETAMINOPHEN 325 MG TAB PO PRN (13:51)
[2023-12-05] MEDS: ENOXAPARIN INJ 40 MG/0.4 ML SYR SQ SCH (14:56)
[2023-12-05] MEDS ORDERED: Nursing to Pharmacy Communication SCH (15:30)
[2023-12-05] MEDS: CHOLESTYRAMINE LIGHT 4 GM PKT PO STA (15:59)
[2023-12-06 07:02] LABS: Basophils # (auto) 0.05 K/uL (0.00-0.20); Basophils % (auto) 0.4 %; Eosinophils # (auto) 0.01 K/uL (0.00-0.50); Eosinophils % (auto) 0.1 %; Hematocrit (blood only) 34.7 % (37.0-47.0); Hemoglobin 11.2 g/dl (12.0-16.0); Immature Granulocytes # (auto) 0.05 K/uL (0.01-0.20); Immature Granulocytes % (auto) 0.4 %; Lymphocytes # (auto) 2.29 K/uL (1.20-3.40); Lymphocytes % (auto) 18.6 %; Mean Corpuscular Hemoglobin 27.7 pg (25.0-34.0); Mean Corpuscular Hgb Conc 32.3 g/dL (32.0-36.0); Mean Corpuscular Volume 85.9 fL (80.0-100.0); Monocytes # (auto) 1.82 K/uL (0.11-0.59); Monocytes % (auto) 14.8 %; Neutrophils # (auto) 8.11 K/uL (1.40-6.50); Neutrophils % (auto) 65.7 %; Platelet Count 219 K/uL (130-400); RDW Standard Deviation 53.5 fL (36.4-46.3); Red Blood Count 4.04 M/uL (4.20-5.40); White Blood Count 12.33 K/ul (4.8-10.8)
[2023-12-06 07:21] LABS: Albumin Globulin Ratio 1.3 (0.9-2); Albumin Level 3.9 gm/dl (3.4-5.0); BUN Creatinine Ratio 11.8 (10-20); Bilirubin,Total 0.8 mg/dl (0.2-1.0); Calcium 9.4 mg/dl (8.6-10.3); Chol HDL Ratio 1.7 (0-5); Creatinine Clr Calc Pharmacy 69.8 ml/min; Est GFR (African American) 99.5 ml/min; Est GFR (Non-African American) 85.9 ml/min; Magnesium 1.9 mg/dl (1.7-2.4); Potassium 3.6 mmol/L (3.5-5.1); Total Protein 6.9 gm/dl (6.0-8.3)
[2023-12-06 07:46] LABS: Estimated Average Glucose 114 mg/dl; Hemoglobin A1C 5.6 % (4.5-5.6)
--- NOTE | 2023-12-06 08:51 | XCELERA ---
[id number] [id number]
[2023-12-06] MEDS: ASPIRIN 81 MG ECTAB PO SCH (09:46)
[2023-12-06] MEDS: ASCORBIC ACID 500 MG TAB PO SCH (09:46)
[2023-12-06] MEDS: CEROVITE ADV FORMULA TAB PO SCH (09:46)
[2023-12-06] MEDS: CHOLECALCIFEROL 25 MCG (1000 UNITS) TAB PO SCH (09:46)
[2023-12-06] MEDS: CYANOCOBALAMIN (B-12) 500 MCG TABLET PO SCH (09:46)
[2023-12-06] MEDS: CHOLESTYRAMINE LIGHT 4 GM PKT PO SCH (12:57)
--- NOTE | 2023-12-06 13:23 | Hospitalist Progress Note ---
Date of Service December 06, 2023 Assessment & Plan (1) Chest pain: Plan: Troponin series is negative. Cardiac echo reveals normal left ventricular ejection fraction with no regional wall motion abnormalities. Lexiscan stress test results are pending (2) Hypertension: Plan: Stable. Continue current medical management (3) Hyperlipidemia: Plan: Stable. Continue current medical management (4) Paroxysmal atrial fibrillation: Plan: Currently in normal sinus rhythm. She takes no systemic anticoagulation. Telemetry (5) Rheumatoid arthritis: Plan: Stable. Continue current medical management Plan Hopeful discharge to home today, December 05, if Lexiscan stress test is negative. Admission and Anticipated Discharge Date Admission Date: December 05, 2023 Subjective Alert and oriented. No distress. Cardiac echo reveals normal left ventricular wall motion with no regional abnormalities. Normal ejection fraction. Lexiscan stress test is pending. Review of Systems 2 Review of Systems: Constitutionalno fever or chills ENTno blurred vision, no double vision, no epistaxis, no sore throat Respiratoryno cough, no wheezing, no shortness of breath Cardiacno palpitations, no chest pain, no syncope Gómez nausea, vomiting, diarrhea, melena, hematochezia GUno urinary retention, no urinary incontinence, no dysuria, no hematuria Musculoskeletalno joint pain, no muscle tenderness Skinno bruising, no rashes, no pruritus Neurono isolated weakness, no paresthesia, no weakness Psychno depression, no anxiety Physical Exam 2 Physical Exam: General-alert and oriented x3, no fever, no chills HEENT-head atraumatic and normocephalic, pupils equal and reactive to light, extraocular muscles intact Neck-no lymphadenopathy or thyromegaly, trachea midline Chest-clear to auscultation. No rales, wheezing or rhonchi Cardiac-regular rate and rhythm, normal S1 and S2 Abdomen-normal bowel sounds, no hepatosplenomegaly Extremities-no cyanosis, clubbing, or edema Neuro-cranial nerves II through XII intact, motor and sensory function within normal limits, strength symmetrical, no focal deficits Psych-normal affect, normal mood Results & Data Results & Data Vital Signs (Past 12 Hours) Vital Signs Temp Pulse Pulse Resp BP Pulse Ox O2 Del Method 12/06/23 11:50 37.2 C 105 H 18 160/84 H 92 CPAP 12/06/23 08:00 90 12/06/23 07:46 37 C 92 H 18 159/88 H 91 CPAP 12/06/23 04:00 36.9 C 89 18 155/83 H 93 CPAP 12/06/23 02:02 21 94 Laboratory Results 12/06/23 06:42 12/06/23 06:42 PG Care Time/CCT Total # of Minutes Spent Total Time Spent with Patient: Total time spent is greater than 50% in coordination of care (as documented) at patient's floor/unit and/or counseling patient: Coding Level of Care Code 23156 SUB INP/OBS CARE 3/50MIN Diagnoses Chest pain R07.9 Chest pain type: unspecified Hypertension I10 Hyperlipidemia E78.5 Paroxysmal atrial fibrillation I48.0 Rheumatoid arthritis M06.9 (1) Chest pain Chest pain type: unspecified Qualified Code(s): R07.9 - Chest pain, unspecified
[2023-12-06] MEDS: REGADENOSON 0.4 MG/5 ML SYR IV ONE (15:28)
--- NOTE | 2023-12-06 16:36 | Discharge Summary ---
Discharge Summary Date of Service December 06, 2023 Principal Dx & Hospital Course #1 = Principal Diagnosis (1) Chest pain: Troponin series is negative. Cardiac echo reveals normal left ventricular ejection fraction with no regional wall motion abnormalities. Lexiscan stress test results are pending (2) Hypertension: Stable. Continue current medical management (3) Hyperlipidemia: Stable. Continue current medical management (4) Paroxysmal atrial fibrillation: Currently in normal sinus rhythm. She takes no systemic anticoagulation. Telemetry (5) Rheumatoid arthritis: Stable. Continue current medical management Plan Hopeful discharge to home today, December 05, if Lexiscan stress test is nega tive. Admission HPI Per Admitting Provider 88-year-old female with past medical history of essential hypertension, hype rlipidemia, VERONIQUE on CPAP, rheumatoid arthritis, paroxysmal atrial fibrillation not on anticoagulation under the care of Dr. Baxter presents to the ED via EMS after experiencing chest pain at 4:30 in the morning relieved by nitroglycerin. Patient states she initially started experiencing jaw pain and neck discomfort around 1 AM which improved after she massaged her neck. She then woke up with substernal chest pain no radiation 7 out of 10 with subjective feeling of shortness of breath and took a sublingual nitro that belonged to her with relief in her pain. She called EMS and was given 4 baby aspirin's chewable and she was brought to the ED. In the emergency room she had another sublingual nitro which helped relieve the pain. She had a EKG done which shows sinus rhythm with ventricular rate of 82 bpm, with no ischemic changes noted on EKG and initial troponin which was negative. She had a chest x-ray which was unremarkable and hospitalist service was called for admission In the ED: Patient was given 1 L of normal saline and 0.4 mg sublingual nitroglycerin. Patient currently denies chest pain. She denies any headache, dizziness, lightheadedness, nausea, vomiting, diarrhea, abdominal pain, dysuria. She has ongoing frequency which is not new and denies any urgency. She denies any fever, chills, cough or recent flulike illness. Patient states she had COVID t wice this year which led to really fatigue but her energy levels have improved and are back to her baseline. She is independent of ADLs, ambulates on her own, drives Patient denies alcohol use or tobacco use Family history: Mother of CVA at age 92, father of GA at age 82 Patient's daughters are at her bedside Discharge Exam General-alert and oriented x3, no fever, no chills HEENT-head atraumatic and normocephalic, pupils equal and reactive to light, extraocular muscles intact Neck-no lymphadenopathy or thyromegaly, trachea midline Chest-clear to auscultation. No rales, wheezing or rhonchi Cardiac-regular rate and rhythm, normal S1 and S2 Abdomen-normal bowel sounds, no hepatosplenomegaly Extremities-no cyanosis, clubbing, or edema Neuro-cranial nerves II through XII intact, motor and sensory function within normal limits, strength symmetrical, no focal deficits Psych-normal affect, normal mood Discharge Plan Discharge Items Patient Disposition: Home - Self-Care Reason For Visit: chest pain Discharge Diagnosis: Noncardiac chest pain Activity: Resume your previous activity Non-emergency contact: Primary Care Provider Call non-emergency contact if: your symptoms worsen Follow-up/Referrals: Sourav Amaro, [Primary Care Provider] - Diet: Regular and Heart Healthy Addtl Attending Provider Instructions: Take a liquid antiacid for any recurrent chest pain and see if this helps. All medications remain the same. Pending Studies at Discharge: No Stand-Alone Forms: My [facility], Smoking Cessation Medications and DC Order Prescriptions: Continued acetaminophen [Tylenol] 325 mg tablet 650 mg PO QID PRN (Reason: Pain/Fever) cyanocobalamin (vitamin B-12) [Vitamin B-12] 500 mcg tablet 500 mcg PO DAILY atorvastatin 10 mg tablet 10 mg PO DAILY cholestyramine (with sugar) 4 gram powder 1 ea PO DAILY diltiazem HCl 180 mg capsule,extended release 24hr 180 mg PO DAILY cholecalciferol (vitamin D3) 1,000 unit capsule 1,000 units PO DAILY loratadine [Claritin] 10 mg tablet 10 mg PO DAILY Macular Health Formula 5-1-7.5 mg capsule 1 cap PO DAILY aspirin 81 mg Tablet,Delayed Release (Dr/Ec) 81 mg PO DAILY ascorbic acid (vitamin C) [Vitamin C] 500 mg Tablet 500 mg PO DAILY Discharge Orders: Discharge Order (Routine); Ordered 12/06/23 Ordered By: Josh Arias Admission Data Admit Date/Time: 12/05/23 09:02 Attending Provider: Josh Arias Admit Provider: Seymour Osorio Primary Care Provider: Sourav Amaro Other Providers: Seymour Osorio Hospital Stay Data Consultations 12/05/23 08:34 ED Decision to Admit Stat Pending Results Patient Have Any Pending Studies at Discharge: No Discharge Instructions Given to Patient (Per Discharging Provider) Take a liquid antiacid for any recurrent chest pain and see if this helps. All medications remain the same. Total Time Total Time Spent Total Time Spent (In Minutes): 45 minutes Coding Level of Care Code 96744 INP/OBS DISCH >30 MIN Diagnoses Chest pain R07.9 Chest pain type: unspecified Hypertension I10 Hyperlipidemia E78.5 Paroxysmal atrial fibrillation I48.0 Rheumatoid arthritis M06.9
[2023-12-06] MEDS: NITROGLYCERIN 2% OINTMENT 30GM TUBE EXT SCH (17:10)
[2023-12-06] MEDS: NITROGLYCERIN 2% OINTMENT 30GM TUBE EXT ONE (17:11)
[2023-12-06] MEDS: carvediloL 12.5 MG TAB PO SCH (17:19)
--- NOTE | 2023-12-06 22:32 | Myocardial Perfusion Study ---
Date of Service December 06, 2023 Myocardial Perfusion Study k Myocardial Perfusion Study Report Procedure: 1. Myocardial perfusion study performed in multiple views/images 2. Lexiscan pharmacologic stress ECG Indications: 1. Chest pain Ordering provider: Dr. Osorio Procedural details: For the stress portion of the study, Lexiscan 0.4 mg was intravenously administered followed by a saline flush. This was followed by 32 mCi of technetium 99m Cardiolite, injected at 2:28 PM on 12/06/2023. 30 minutes following the injection, imaging of the heart was performed in multiple projections. For the rest portion of the study, 11 mCi technetium 99m Cardiolite was injected intravenously at 12:49 PM on 12/06/2023. 1 hour following the injection, imaging of the heart was performed in the same projections. Lexiscan stress ECG: Resting ECG demonstrated: Sinus tachycardia 107 bpm. Possible septal infarct. PACs. Maximum heart rate: 120 bpm Maximal, age-predicted heart rate: 90% Resting blood pressure: 174/90 mmHg Maximum blood pressure: 174/[address] changes: None Arrhythmia: None Symptoms: Mild lightheadedness Findings: Rotating raw imaging demonstrated no significant lung uptake. There is no significant motion artifact. Heart size appeared normal. Myocardial perfusion demonstrated a very small area of mildly reduced uptake involving the apical anteroseptum which appeared to be mostly fixed and post-rest and rest imaging. There were no significant reversible defects. Ejection fraction: 86% Wall motion: Normal No significant transient ischemic dilation. Impression: 1. Negative myocardial perfusion study for significant ischemia. 2. Very small apical anteroseptal defect may represent small infarct with possible radha-infarct ischemia versus artifact given normal wall motion. 3. Hyperdynamic LV with no regional wall motion abnormalities. EF 86%. 4. Lexiscan induced lightheadedness. 5. Negative Lexiscan ECG for ischemia at 90% MPHR. MNP Myocardial perfusion code Procedure Code Procedure 1: Myocardial Perfusion Codes: 12085 Cardiovascular Stress Test, multiple Procedure 2: Myocardial Perfusion Codes: 26976 Cardiovascular Stress Test, supervision only Procedure 3: Myocardial Perfusion Codes: 57954 Cardiovascular Stress Test, interpretat ion and report
--- NOTE | 2023-12-07 06:11 | Electrocardiogram Report ---
Test Reason : Blood Pressure : */* mmHG Vent. Rate : 82 BPM Atrial Rate : 82 BPM P-R Int : 196 ms QRS Dur : 72 ms QT Int : 380 ms P-R-T Axes : 51 -16 42 degrees QTcB Int : 443 ms Normal sinus rhythm with sinus arrhythmia Low voltage QRS Septal infarct , age undetermined Abnormal ECG When compared with ECG of 11-Oct-2023 18:02, Premature atrial complexes are no longer Present Septal infarct is now Present Confirmed by Ryan Molina ([id number]) on 12/07/2023 6:10:59 AM Referred By: REFERRED SELF Confirmed By: Ryan Molina
== END 2023-12-06 18:11 | disposition home or self-care (01) ==
LOC: EDINP 07:12 → ED 07:12 → SUATTDRO 09:02 → EDINP 14:40 → 2W 16:11